=== PATIENT | male | born 1995 | race Caucasian/White ===

== ENCOUNTER 2017-03-29 17:09 | Emergency (ER) | payer BC ==
[2017-03-29 17:12] VITALS: BP 140/94; PULSE 141; RESP 15; TEMP 98.8; O2SAT 99
[2017-03-29 18:34] LABS: BASOPHIL % 0.3 % (0.0-2.0); EOSINOPHIL # 0.5 TH/MM3 (0-0.4); EOSINOPHIL % 6.1 % (0.0-4.0); HEMATOCRIT 46.1 % (39.0-51.0); HEMO FLAGS DIFF FINAL; LYMPH % 31.7 % (9.0-44.0); LYMPHOCYTE # 2.4 TH/MM3 (1.0-4.8); MEAN CELL VOLUME 92.8 FL (80.0-100.0); MEAN CORPUSCULAR HEMOGLOBIN 32.5 PG (27.0-34.0); MEAN CORPUSCULAR HGB CONC 35.1 % (32.0-36.0); MONO % 7.9 % (0.0-8.0); PLATELET COUNT 249 TH/MM3 (150-450); RED BLOOD COUNT 4.97 MIL/MM3 (4.50-5.90); RED CELL DISTRIBUTION WIDTH 13.6 % (11.6-17.2); WHITE BLOOD COUNT 7.5 TH/MM3 (4.0-11.0)
[2017-03-29 18:48] LABS: BLOOD, URINE NEG (NEG); COMMENT (UR) CULT NOT INDICATED; CULTURE IF INDICATED CULT NOT INDICATED; GLUCOSE,URINE NEG (NEG); KETONE, URINE NEG (NEG); MUCUS URINE MANY /lpf (OCC); NITRITE,URINE NEG (NEG); SQUAMOUS EPITHELIAL CELL URINE <1 /hpf (0-5); URINE COLOR YELLOW (YELLW/STRAW)
[2017-03-29 18:59] LABS: BICARBONATE 25.6 MEQ/L (21.0-32.0); POTASSIUM 3.8 MEQ/L (3.5-5.1)
[2017-03-29 21:51] VITALS: BP 147/94; PULSE 108; RESP 18; O2SAT 100
--- NOTE | 2017-03-29 21:55 | PD ---
HPI Chief Complaint: GI Complaint Time Seen by Provider: 21:55 Travel History International Travel<30 days: No Contact w/Intl Traveler<30days: No Traveled to known affect area: No History of Present Illness HPI 21 y/o male presents the emergency department with several day history of gradually worsening right lower quadrant discomfort and crampy pain. Patient has had some "loose stools" over the past 2 days. Patient denies fever, chills, but has had some mild nausea but no vomiting. He did have some esophagitis symptoms this morning upon waking. Patient is concerned he might have appendicitis. He denies urinary symptoms or penile discharge or testicular pain. Patient denies back pain or CVA tenderness. Patient has no family history of bowel disease. He has no previous history of bowel problems in the past. His pain is rated as a 3/10 occasionally up to 5. He states no other significant complaints. No known drug allergies. PFSH Past Medical History Medical History: Denies Significant Hx Tetanus Vaccination: Unknown Influenza Vaccination: No Past Surgical History Surgical History: No Previous Surgery Social History Alcohol Use: Yes (occasional ) Tobacco Use: Yes (occasionally) Substance Use: Yes (marijuana ) Allergies-Medications (Allergen,Severity, Reaction): Coded Allergies: No Known Allergies (Unverified , 07/22/16) Reported Meds & Prescriptions Reported Meds & Active Scripts Active Omeprazole 40 Mg Cap 40 Mg PO DAILY Review of Systems Except as stated in HPI: all other systems reviewed are Neg General / Constitutional: No: Fever, Chills Eyes: No: Visual changes HENT: No: Headaches Cardiovascular: No: Chest Pain or Discomfort Respiratory: No: Shortness of Breath Gastrointestinal: Positive: Nausea, Diarrhea (loose stools.), Abdominal Pain ( right lower quadrant tenderness. See history present illness), Indigestion, No : Vomiting, Constipation, Dysphagia, Loss of Appetite Genitourinary: No: Dysuria Musculoskeletal: No: Pain Skin: No Rash Neurologic: No: Weakness Psychiatric: No: Depression Endocrine: No: Polydipsia Hematologic/Lymphatic: No: Easy Bruising Physical Exam Narrative GENERAL: Patient appears no acute distress. He is ambulatory to the room without difficulty. SKIN: Warm and dry. Normal color. Normal turgor. No rash. HEAD: Atraumatic. Normocephalic. EYES: Pupils equal and round. No scleral icterus. No injection or drainage. ENT: No nasal bleeding or discharge. Mucous membranes pink and moist. Pharynx is clear. Airway is patent. NECK: Trachea midline. Supple and nontender CARDIOVASCULAR: Regular rate and rhythm. RESPIRATORY: No accessory muscle use. Clear to auscultation. Breath sounds equal bilaterally. GASTROINTESTINAL: Abdomen soft, normal bowel sounds, nondistended. Patient has no specific point tenderness, guarding, or rebound. No CVA tenderness is appreciated. Hepatic and splenic margins not palpable. MUSCULOSKELETAL: Extremities without clubbing, cyanosis, or edema. No obvious deformities. NEUROLOGICAL: Awake and alert. No obvious cranial nerve deficits. Motor grossly within normal limits. Five out of 5 muscle strength in the arms and legs. Normal speech. PSYCHIATRIC: Appropriate mood and affect; insight and judgment normal. Data Data Last Documented VS Vital Signs Date Time Temp Pulse Resp B/P Pulse Ox O2 Delivery O2 Flow Rate FiO2 03/29/17 21:51 108 18 147/94 100 Room Air 03/29/17 17:12 98.8 Orders Complete Blood Count With Diff (03/29/17 17:16) Basic Metabolic Panel (Bmp) (03/29/17 17:16) Urinalysis - C+S If Indicated (03/29/17 17:16) Pantoprazole (Protonix) (03/29/17 22:15) Labs Laboratory Tests Test 03/29/17 17:50 White Blood Count 7.5 TH/MM3 Red Blood Count 4.97 MIL/MM3 Hemoglobin 16.2 GM/DL Hematocrit 46.1 % Mean Corpuscular Volume 92.8 FL Mean Corpuscular Hemoglobin 32.5 PG Mean Corpuscular Hemoglobin 35.1 % Concent Red Cell Distribution Width 13.6 % Platelet Count 249 TH/MM3 Mean Platelet Volume 7.0 FL Neutrophils (%) (Auto) 54.0 % Lymphocytes (%) (Auto) 31.7 % Monocytes (%) (Auto) 7.9 % Eosinophils (%) (Auto) 6.1 % Basophils (%) (Auto) 0.3 % Neutrophils # (Auto) 4.0 TH/MM3 Lymphocytes # (Auto) 2.4 TH/MM3 Monocytes # (Auto) 0.6 TH/MM3 Eosinophils # (Auto) 0.5 TH/MM3 Basophils # (Auto) 0.0 TH/MM3 CBC Comment DIFF FINAL Differential Comment Urine Color YELLOW Urine Turbidity CLEAR Urine pH 6.0 Urine Specific [place] 1.035 Urine Protein 30 mg/dL Urine Glucose (UA) NEG mg/dL Urine Ketones NEG mg/dL Urine Occult Blood NEG Urine Nitrite NEG Urine Bilirubin NEG Urine Urobilinogen LESS THAN 2.0 MG/DL Urine Leukocyte Esterase NEG Urine RBC LESS THAN 1 /hpf Urine WBC 3 /hpf Urine Squamous Epithelial <1 /hpf Cells Urine Mucus MANY /lpf Microscopic Urinalysis Comment CULT NOT INDICATED Sodium Level 139 MEQ/L Potassium Level 3.8 MEQ/L Chloride Level 104 MEQ/L Carbon Dioxide Level 25.6 MEQ/L Anion Gap 9 MEQ/L Blood Urea Nitrogen 14 MG/DL Creatinine 1.44 MG/DL Estimat Glomerular Filtration 62 ML/MIN Rate Random Glucose 140 MG/DL Calcium Level 8.7 MG/DL MDM Medical Decision Making Medical Screen Exam Complete: Yes Emergency Medical Condition: Yes Differential Diagnosis Gastritis. Gastroenteritis. Right lower quadrant pain. Possible appendicitis. UTI. STD. Narrative Course Patient is medically stable at time of exam. Labs ordered in triage show normal CBC, normal urinalysis, and normal CMP other than a creatinine of 1.44. Patient does not warrant further medical workup or radiographic imaging based on my history and physical. Patient is felt to have a gastroenteritis. Patient is given pantoprazole 40 mg by mouth. Patient is encouraged to refrain from alcohol and spicy or fatty foods for the next several weeks. Patient is given a prescription for omeprazole 40 mg daily 30. Patient is encouraged to push fluids and stay hydrated. Patient can follow-up with a local primary care physician or return to emergency department if symptoms do not improve or worsen as discussed Diagnosis Primary Impression: Gastritis Qualified Code: K29.70 - Gastritis without bleeding, unspecified chronicity, unspecified gastritis type Patient Instructions: Diet for Stomach Ulcers and Gastritis (ED), General Instructions Additional Instructions: Labs ordered in triage show normal CBC, normal urinalysis, and normal CMP other than a creatinine of 1.44. Patient does not warrant further medical workup or radiographic imaging based on my history and physical. Patient is felt to have a gastroenteritis. Patient is given pantoprazole 40 mg by mouth. Patient is encouraged to refrain from alcohol and spicy or fatty foods for the next several weeks. Patient is given a prescription for omeprazole 40 mg daily 30. Patient is encouraged to push fluids and stay hydrated. Patient can follow-up with a local primary care physician or return to emergency department if symptoms do not improve or worsen as discussed Med/Other Pt SpecificInfo: Prescription(s) given Scripts Omeprazole 40 Mg Cap40 Mg PO DAILY #30 CAP Prov:Magalys Chand MD 03/29/17 Disposition: 01 DISCHARGE HOME Condition: Stable Buzz Curry Mar 29, 2017 21:55
[2017-03-29] MEDS ORDERED: OMEP40CA2 PO (22:05)
[2017-03-29] MEDS ORDERED: PANTOPRAZOLE SOD 40 MG DELAYED RELEASE TAB PO ONE (22:15)
== END 2017-03-29 22:44 | disposition home or self-care (01) ==
LOC: NEPE 17:09
DX: K29.70 Gastritis, unspecified, without bleeding (principal); Z72.0 Tobacco use
CPT/HCPCS: 80048; 81001; 85025; 99283

== ENCOUNTER 2017-05-18 05:42 | Emergency (ER) | payer BC ==
[~2017-05-18] VITALS: Ht 172.7 cm; Wt 76.0 kg
[2017-05-18 05:42] VITALS: BP 155/98; PULSE 115; RESP 16; TEMP 99.3; O2SAT 97
[~2017-05-18 05:42] MED LIST: OMEP40CA2 PO
[2017-05-18] MEDS ORDERED: IOHEXOL 350 MG/ML 10 ML VIAL (for RAD DIAG) IV PUSH ONE (05:43)
--- NOTE | 2017-05-18 06:03 | PD ---
HPI Chief Complaint: GI Complaint Time Seen by Provider: 05:48 Travel History International Travel<30 days: No Contact w/Intl Traveler<30days: No Traveled to known affect area: No History of Present Illness HPI The patient is a 21 year old female who presents to the [facility] emergency department with a history of acid reflux symptoms that awoke him from sound sleep at 4:30 AM. He reports that he had nausea and vomiting immediately after getting up with the symptoms. He reports that he now has midepigastric abdominal pain. He reports that he vomited twice since then and was concerned that there was a small amount of blood in the emesis. He reports that he began to feel lightheaded en route to this facility. He ate last night late and had two beers prior to going to bed. He reports that his meal consisted of a sandwich with Aquilla sauce on it. The patient reports that he has had problems with acid reflux for the last year approximately once every 2 weeks. On review of systems, the patient denies any recent fevers, cough, congestion, neck pain, chest pain, shortness of breath, diarrhea, urinary symptoms, or neurologic symptoms. The patient denies having any blood in his stool or black or tarry stools. He denies having any recent weight loss, night sweats, or fevers. [facility] Past Medical History Narrative Medical The patient reports a history of acid reflux. The patient was seen in the emergency department related to abdominal pain in March. The patient was given a prescription for Protonix, however he reports that he did not fill the prescription. Medical History: Denies Significant Hx Diminished Hearing: No Past Surgical History Surgical History: No Previous Surgery Social History Alcohol Use: Yes (SOCIALLY ) Tobacco Use: No Allergies-Medications (Allergen,Severity, Reaction): Coded Allergies: No Known Allergies (Unverified , 05/18/17) Reported Meds & Prescriptions Reported Meds & Active Scripts Active Nexium (Esomeprazole DR) 20 Mg Capdr 20 Mg PO DAILY Review of Systems Except as stated in HPI: all other systems reviewed are Neg General / Constitutional: No: Fever Eyes: No: Visual changes HENT: No: Headaches Cardiovascular: No: Chest Pain or Discomfort Respiratory: No: Shortness of Breath Gastrointestinal: Positive: Nausea, Vomiting, Abdominal Pain, Hematemesis, Indigestion, No: Diarrhea Genitourinary: No: Dysuria Musculoskeletal: No: Pain Skin: No Rash Neurologic: No: Weakness Psychiatric: No: Depression Endocrine: No: Polydipsia Hematologic/Lymphatic: No: Easy Bruising Physical Exam Narrative General: The patient is a well-developed well-nourished male in no acute distress. Head and Neck exam: Head is normocephalic atraumatic. Eyes: EOMI, pupils are equal round and reactive to light. Nose: Midline septum with pink mucous membranes Mouth: Dentition unremarkable. Moist mucus membranes. Posterior oropharynx is not erythematous. No tonsillar hypertrophy. Uvula midline. Airway patent. Neck: No palpable lymphadenopathy. No nuchal rigidity. No thyromegaly. Cardiovascular: Sinus tachycardia in the 1 teens without murmurs, gallops, or rubs. No pulse deficit to the extremities and simultaneous auscultation and palpation of his radial artery. Lungs: Clear to auscultation bilaterally. No wheezes, rhonchi, or rales. Abdomen: Soft, with tenderness on palpation of the midepigastric area, no other tenderness on palpation of the other quadrants of the abdomen. No guarding, rebound, or rigidity. Normal bowel sounds are audible. No tenderness on palpation of McBurney's point. Negative Metzger sign. Extremities: No clubbing, cyanosis, or edema. 2+ pulses in all 4 extremities. No calf tenderness on palpation. Back: No costovertebral angle tenderness to palpation. Neurologic Exam: Grossly nonfocal. Skin Exam: No rash noted. Intact skin that is warm and dry. Data Data Last Documented VS Vital Signs Date Time Temp Pulse Resp B/P (MAP) Pulse Ox O2 Delivery O2 Flow Rate FiO2 05/18/17 09:28 05/18/17 09:20 108 18 99 05/18/17 07:15 Room Air 05/18/17 05:42 99.3 Orders Orders Complete Blood Count With Diff (05/18/17 05:57) Comprehensive Metabolic Panel (05/18/17 05:57) Prothrombin Time / Inr (Pt) (05/18/17 05:57) Act Partial Throm Time (Ptt) (05/18/17 05:57) Lipase (05/18/17 05:57) Urinalysis - C+S If Indicated (05/18/17 05:57) Magnesium (Mg) (05/18/17 05:57) Chest, Single Ap (05/18/17 05:57) Iv Access Insert/Monitor (05/18/17 05:57) Ecg Monitoring (05/18/17 05:57) Oximetry (05/18/17 05:57) Type And Screen (05/18/17 05:57) Sodium Chlor 0.9% 1000 Ml Inj (Ns 1000 M (05/18/17 06:15) Ondansetron Inj (Zofran Inj) (05/18/17 06:15) Pantoprazole Inj (Protonix Inj) (05/18/17 06:15) Ct Abd/Pel W Iv Contrast(Rout) (05/18/17 07:17) Sodium Chloride 0.9% Flush (Ns Flush) (05/18/17 07:30) Iohexol 350 Inj (Omnipaque 350 Inj) (05/18/17 05:43) Labs Laboratory Tests Test 05/18/17 06:15 05/18/17 07:15 White Blood Count 7.1 TH/MM3 Red Blood Count 4.94 MIL/MM3 Hemoglobin 16.2 GM/DL Hematocrit 46.6 % Mean Corpuscular Volume 94.4 FL Mean Corpuscular Hemoglobin 32.7 PG Mean Corpuscular Hemoglobin Concent 34.7 % Red Cell Distribution Width 14.4 % Platelet Count 259 TH/MM3 Mean Platelet Volume 6.5 FL Neutrophils (%) (Auto) 56.4 % Lymphocytes (%) (Auto) 24.3 % Monocytes (%) (Auto) 13.0 % Eosinophils (%) (Auto) 5.9 % Basophils (%) (Auto) 0.4 % Neutrophils # (Auto) 4.0 TH/MM3 Lymphocytes # (Auto) 1.7 TH/MM3 Monocytes # (Auto) 0.9 TH/MM3 Eosinophils # (Auto) 0.4 TH/MM3 Basophils # (Auto) 0.0 TH/MM3 CBC Comment DIFF FINAL Differential Comment Prothrombin Time 10.7 SEC Prothromb Time International Ratio 1.0 RATIO Activated Partial Thromboplast Time 24.5 SEC Blood Urea Nitrogen 15 MG/DL Creatinine 1.03 MG/DL Random Glucose 104 MG/DL Total Protein 7.7 GM/DL Albumin 4.0 GM/DL Calcium Level 8.8 MG/DL Magnesium Level 2.3 MG/DL Alkaline Phosphatase 88 U/L Aspartate Amino Transf (AST/SGOT) 63 U/L Alanine Aminotransferase (ALT/SGPT) 101 U/L Total Bilirubin 0.5 MG/DL Sodium Level 140 MEQ/L Potassium Level 3.9 MEQ/L Chloride Level 103 MEQ/L Carbon Dioxide Level 28.0 MEQ/L Anion Gap 9 MEQ/L Estimat Glomerular Filtration Rate 91 ML/MIN Lipase 132 U/L Urine Color YELLOW Urine Turbidity CLEAR Urine pH 8.5 Urine Specific [place] 1.018 Urine Protein TRACE mg/dL Urine Glucose (UA) NEG mg/dL Urine Ketones NEG mg/dL Urine Occult Blood NEG Urine Nitrite NEG Urine Bilirubin NEG Urine Urobilinogen LESS THAN 2.0 MG/DL Urine Leukocyte Esterase NEG Urine RBC 3 /hpf Urine WBC 1 /hpf Urine Bacteria RARE /hpf Urine Mucus FEW /lpf Microscopic Urinalysis Comment CULT NOT INDICATED MDM Medical Decision Making Medical Screen Exam Complete: Yes Emergency Medical Condition: Yes Medical Record Reviewed: Yes Differential Diagnosis Peptic ulcer disease, versus acid reflux, versus hemorrhagic esophagitis, versus Susan-Mckinney tear Narrative Course During the course of the patients emergency department visit, the patients history, examination, and differential diagnosis were reviewed with the patient. The patient had IV access obtained and blood work sent for analysis. The patient was placed on a media monitor with oximetry and blood pressure monitoring. The patient was initially provided normal saline 1 L IV fluid bolus, Zofran 4 mg IV, Protonix 40 mg IV. The patients laboratory studies were reviewed and remarkable for white count of 7.1, hemoglobin 16.2, platelets 259 with 13 monocytes, CMP is remarkable for an AST of 63, ALT 101, PT 10.7, PTT 24.5, urinalysis shows rare bacteria otherwise unremarkable. Radiology studies were reviewed and remarkable for a chest x-ray that shows no acute cardiopulmonary disease. The patient's CT scan of the abdomen and pelvis is pending at the conclusion of my shift. The patient is resting comfortably. The patient's case was checked out to the oncoming emergency physician to disposition the patient based on the conclusion of the patient's workup. Diagnosis Primary Impression: Abdominal pain Qualified Codes: R10.13 - Epigastric pain Additional Impression: Vomiting Qualified Codes: R11.2 - Nausea with vomiting, unspecified Scripts Esomeprazole DR (Nexium) 20 Mg Capdr 20 MG PO DAILY, #30 CAP 0 Refills Prov: Surendra Bernabe MD 05/18/17 Magalys Chand MD May 18, 2017 06:03
[2017-05-18] MEDS ORDERED: ONDANSETRON HCL 4 MG/2 ML VIAL IV ONE (06:15)
[2017-05-18] MEDS ORDERED: PANTOPRAZOLE SODIUM 40 MG VIAL IV PUSH ONE (06:15)
[2017-05-18] MEDS ORDERED: SODIUM CHLOR 0.9% 1000 ML INJ 1,000 ML IV ONE (06:15)
--- NOTE | 2017-05-18 06:26 | RADRPT ---
EXAM DATE/TIME: 05/18/2017 06:18 [facility] COMPARISON: No previous studies available for comparison. INDICATIONS : Vomited blood this morning. MEDICAL HISTORY : None. SURGICAL HISTORY : None. ENCOUNTER: Initial ACUITY: 1 day PAIN SCORE: 0/10 LOCATION: Bilateral chest FINDINGS: Portable AP view of the chest demonstrates a normal-sized cardiac silhouette. No effusion, consolidat ion, or pneumothorax is visualized. The bones and soft tissues demonstrate no acute abnormality. CONCLUSION: No acute cardiopulmonary abnormality is identified. Martin Miranda MD on May 18, 2017 at 6:23 Board Certified Radiologist. This report was verified electronically.
[2017-05-18 06:46] LABS: APTT (PATIENT) 24.5 SEC (24.3-30.1); PROTHROMBIN TIME - PATIENT 10.7 SEC (9.8-11.6)
[2017-05-18 06:54] LABS: BASOPHIL % 0.4 % (0.0-2.0); EOSINOPHIL # 0.4 TH/MM3 (0-0.4); EOSINOPHIL % 5.9 % (0.0-4.0); HEMATOCRIT 46.6 % (39.0-51.0); HEMO FLAGS DIFF FINAL; LYMPH % 24.3 % (9.0-44.0); LYMPHOCYTE # 1.7 TH/MM3 (1.0-4.8); MEAN CELL VOLUME 94.4 FL (80.0-100.0); MEAN CORPUSCULAR HEMOGLOBIN 32.7 PG (27.0-34.0); MEAN CORPUSCULAR HGB CONC 34.7 % (32.0-36.0); NEUT % 56.4 % (16.0-70.0); PLATELET COUNT 259 TH/MM3 (150-450); RED BLOOD COUNT 4.94 MIL/MM3 (4.50-5.90); RED CELL DISTRIBUTION WIDTH 14.4 % (11.6-17.2); WHITE BLOOD COUNT 7.1 TH/MM3 (4.0-11.0)
[2017-05-18 07:07] LABS: ALKALINE PHOSPHATASE 88 U/L (45-117); ALT (GPT) 101 U/L (12-78); TOTAL BILIRUBIN ADULT 0.5 MG/DL (0.2-1.0)
[2017-05-18 07:12] LABS: ANION GAP 9 MEQ/L (5-15); AST (GOT) 63 U/L (15-37); BLOOD UREA NITROGEN 15 MG/DL (7-18); CHLORIDE 103 MEQ/L (98-107); GLOMERULAR FILTRATION RATE 91 ML/MIN (>89); MAGNESIUM 2.3 MG/DL (1.5-2.5); POTASSIUM 3.9 MEQ/L (3.5-5.1); SODIUM (NA) 140 MEQ/L (136-145)
[2017-05-18 07:15] VITALS: BP 160/79; PULSE 103; RESP 18; O2SAT 97
[2017-05-18] MEDS ORDERED: SODIUM CHLORIDE 0.9% FLUSH 10 ML FLUSH IV FLUSH PRN (07:30)
[2017-05-18 07:43] LABS: BACTERIA, URINE RARE /hpf; BLOOD, URINE NEG (NEG); COMMENT (UR) CULT NOT INDICATED; CULTURE IF INDICATED CULT NOT INDICATED; GLUCOSE,URINE NEG (NEG); KETONE, URINE NEG (NEG); MUCUS URINE FEW /lpf (OCC); NITRITE,URINE NEG (NEG); PH, URINE 8.5 (5.0-8.5); URINE COLOR YELLOW (YELLW/STRAW)
--- NOTE | 2017-05-18 08:00 | PD ---
Physical Exam Date Seen by Provider: May 18, 2017 Time Seen by Provider: 07:45 Narrative She was signed out to me by Dr. Chand at 745 near change of shift. The patient was awaiting a CT scan. The patient presents with complaints of epigastric pain that woke him from sleep. He was seen in March for similar thing. The patient reported possibly seen blood in his emesis. He did report that he had a sandwich with buffalo wings sauce and 2 beers prior to going to bed. White count was within normal limits. His LFTs were slightly elevated. He has not followed up with GI service as yet. Data Data Last Documented VS Vital Signs Date Time Temp Pulse Resp B/P (MAP) Pulse Ox O2 Delivery O2 Flow Rate FiO2 05/18/17 07:15 103 18 160/79 (106) 97 Room Air 05/18/17 05:42 99.3 Orders Orders Complete Blood Count With Diff (05/18/17 05:57) Comprehensive Metabolic Panel (05/18/17 05:57) Prothrombin Time / Inr (Pt) (05/18/17 05:57) Act Partial Throm Time (Ptt) (05/18/17 05:57) Lipase (05/18/17 05:57) Urinalysis - C+S If Indicated (05/18/17 05:57) Magnesium (Mg) (05/18/17 05:57) Chest, Single Ap (05/18/17 05:57) Iv Access Insert/Monitor (05/18/17 05:57) Ecg Monitoring (05/18/17 05:57) Oximetry (05/18/17 05:57) Type And Screen (05/18/17 05:57) Sodium Chlor 0.9% 1000 Ml Inj (Ns 1000 M (05/18/17 06:15) Ondansetron Inj (Zofran Inj) (05/18/17 06:15) Pantoprazole Inj (Protonix Inj) (05/18/17 06:15) Ct Abd/Pel W Iv Contrast(Rout) (05/18/17 07:17) Sodium Chloride 0.9% Flush (Ns Flush) (05/18/17 07:30) Iohexol 350 Inj (Omnipaque 350 Inj) (05/18/17 05:43) Labs Laboratory Tests Test 05/18/17 06:15 05/18/17 07:15 White Blood Count 7.1 TH/MM3 Red Blood Count 4.94 MIL/MM3 Hemoglobin 16.2 GM/DL Hematocrit 46.6 % Mean Corpuscular Volume 94.4 FL Mean Corpuscular Hemoglobin 32.7 PG Mean Corpuscular Hemoglobin Concent 34.7 % Red Cell Distribution Width 14.4 % Platelet Count 259 TH/MM3 Mean Platelet Volume 6.5 FL Neutrophils (%) (Auto) 56.4 % Lymphocytes (%) (Auto) 24.3 % Monocytes (%) (Auto) 13.0 % Eosinophils (%) (Auto) 5.9 % Basophils (%) (Auto) 0.4 % Neutrophils # (Auto) 4.0 TH/MM3 Lymphocytes # (Auto) 1.7 TH/MM3 Monocytes # (Auto) 0.9 TH/MM3 Eosinophils # (Auto) 0.4 TH/MM3 Basophils # (Auto) 0.0 TH/MM3 CBC Comment DIFF FINAL Differential Comment Prothrombin Time 10.7 SEC Prothromb Time International Ratio 1.0 RATIO Activated Partial Thromboplast Time 24.5 SEC Blood Urea Nitrogen 15 MG/DL Creatinine 1.03 MG/DL Random Glucose 104 MG/DL Total Protein 7.7 GM/DL Albumin 4.0 GM/DL Calcium Level 8.8 MG/DL Magnesium Level 2.3 MG/DL Alkaline Phosphatase 88 U/L Aspartate Amino Transf (AST/SGOT) 63 U/L Alanine Aminotransferase (ALT/SGPT) 101 U/L Total Bilirubin 0.5 MG/DL Sodium Level 140 MEQ/L Potassium Level 3.9 MEQ/L Chloride Level 103 MEQ/L Carbon Dioxide Level 28.0 MEQ/L Anion Gap 9 MEQ/L Estimat Glomerular Filtration Rate 91 ML/MIN Lipase 132 U/L Urine Color YELLOW Urine Turbidity CLEAR Urine pH 8.5 Urine Specific [place] 1.018 Urine Protein TRACE mg/dL Urine Glucose (UA) NEG mg/dL Urine Ketones NEG mg/dL Urine Occult Blood NEG Urine Nitrite NEG Urine Bilirubin NEG Urine Urobilinogen LESS THAN 2.0 MG/DL Urine Leukocyte Esterase NEG Urine RBC 3 /hpf Urine WBC 1 /hpf Urine Bacteria RARE /hpf Urine Mucus FEW /lpf Microscopic Urinalysis Comment CULT NOT INDICATED MDM Medical Record Reviewed: Yes Supervised Visit with NICOLÁS: No Interpretation(s) Last 24 hours Impressions Abdomen/Pelvis CT 05/18/17 0717 Signed Impressions: Service Date/Time: Thursday, May 18, 2017 07:43 - CONCLUSION: 1. Moderate hepatic steatosis. 2. Subcentimeter left renal low-density likely benign. 3. No acute inflammatory process. 4. Normal appendix. Josh Theodore MD Chest X-Ray 05/18/17 0557 Signed Impressions: Service Date/Time: Thursday, May 18, 2017 06:18 - CONCLUSION: No acute cardiopulmonary abnormality is identified. Martin Miranda MD Narrative Course 21-year-old male who was signed out to me at change of shift. We are waiting CT scan. CT scan shows no evidence of acute process. He does have steatosis of the liver as well as a subcentimeter nodule in the kidney which is likely benign. He is instructed to have a bland diet and follow up with GI physician. He'll be given the name and number of the GI physician who is on-call today. He is instructed to take Nexium daily. He also instructed return of he develops any worsening symptoms, or any other reason the concerns him. Diagnosis Primary Impression: Epigastric pain Additional Impressions: Nausea & vomiting Elevated liver enzymes Steatosis of liver left renal nodule Referrals: Radha Mirza MD Additional Instruction: [place] diet. Avoid spicy fatty foods. Follow up with GI physician for the "fatty liver". Also follow up with primary care physician for the renal nodule that is likely benign. Med/Other Pt SpecificInfo: Prescription(s) given Scripts No Active Prescriptions or Reported Meds Disposition: 01 DISCHARGE HOME Condition: Stable Surendra Bernabe MD May 18, 2017 08:00
--- NOTE | 2017-05-18 08:11 | RADRPT ---
EXAM DATE/TIME: 05/18/2017 07:43 [facility] COMPARISON: No previous studies available for comparison. INDICATIONS : Abdomen pain; vomiting. IV CONTRAST: 100 cc Omnipaque 350 (iohexol) IV ORAL CONTRAST: No oral contrast ingested. RADIATION DOSE: 9.96 CTDIvol (mGy) MEDICAL HISTORY : None SURGICAL HISTORY : None. ENCOUNTER: Initial ACUITY: 1 day PAIN SCALE: 5/10 LOCATION: Bilateral abdomen. TECHNIQUE: Volumetric scanning of the abdomen and pelvis was performed. Using automated exposure control and ad justment of the mA and/or kV according to patient size, radiation dose was kept as low as reasonably achievable to obtain optimal diagnostic quality images. DICOM format image data is available electro nically for review and comparison. FINDINGS: LOWER LUNGS: The visualized lower lungs are clear. LIVER: Decrease attenuation without lesion. There is no dilation of the biliary tree. No calcified gallsto haris. SPLEEN: Normal size without lesion. PANCREAS: Within normal limits. KIDNEYS: Normal in size and shape. There is no mass, stone or hydronephrosis. Small low density upper pole le ft kidney. ADRENAL GLANDS: Within normal limits. VASCULAR: There is no aortic aneurysm. BOWEL/MESENTERY: The stomach, small bowel, and colon demonstrate no acute abnormality. There is no free intraperitone al air or fluid. ABDOMINAL WALL: Within normal limits. RETROPERITONEUM: There is no lymphadenopathy. BLADDER: No wall thickening or mass. REPRODUCTIVE: Within normal limits. INGUINAL: There is no lymphadenopathy or hernia. MUSCULOSKELETAL: Within normal limits for patient age. CONCLUSION: 1. Moderate hepatic steatosis. 2. Subcentimeter left renal low-density likely benign. 3. No acute inflammatory process. 4. Normal appendix. Josh Theodore MD on May 18, 2017 at 8:02 Board Certified Radiologist. This report was verified electronically.
[2017-05-18] MEDS ORDERED: NEXI20CA PO (09:10)
[2017-05-18 09:20] VITALS: BP 146/89
== END 2017-05-18 09:28 | disposition home or self-care (01) ==
LOC: NEPE 05:42
DX: R10.13 Epigastric pain (principal); K92.0 Hematemesis; R74.8 Abnormal levels of other serum enzymes; K76.0 Fatty (change of) liver, not elsewhere classified; K21.9 Gastro-esophageal reflux disease without esophagitis; Z79.899 Other long term (current) drug therapy
CPT/HCPCS: 71010; 74177; 80053; 81001; 83690; 83735; 85025; 85610; 85730; 86850; 86900; 86901; 96361; 96374; 96375; 99285; C9113; J2405; J7030; Q9967

== ENCOUNTER 2017-08-18 13:30 | Emergency (ER) | payer BC ==
[~2017-08-18 13:30] MED LIST changes: +NEXI20CA PO; -OMEP40CA2 PO
[2017-08-18 13:32] VITALS: BP 145/105; PULSE 110; RESP 17; TEMP 99
[2017-08-18] MEDS ORDERED: SODIUM CHLOR 0.9% 1000 ML INJ 1,000 ML IV ONE (13:51)
[2017-08-18] MEDS ORDERED: SODIUM CHLORIDE 0.9% FLUSH 10 ML FLUSH IVF PRN (14:00)
[2017-08-18] MEDS ORDERED: ONDANSETRON HCL 4 MG/2 ML VIAL IV PUSH ONE (14:00)
[2017-08-18 14:09] LABS: HEMATOCRIT 45.7 % (39.0-51.0); MEAN CELL VOLUME 96.4 FL (80.0-100.0); MEAN CORPUSCULAR HEMOGLOBIN 35.3 PG (27.0-34.0); PLATELET COUNT 181 TH/MM3 (150-450); RED BLOOD COUNT 4.75 MIL/MM3 (4.50-5.90); RED CELL DISTRIBUTION WIDTH 13.7 % (11.6-17.2); WHITE BLOOD COUNT 8.3 TH/MM3 (4.0-11.0)
[2017-08-18 14:11] LABS: HEMO FLAGS AUTO DIFF; MEAN CORPUSCULAR HGB CONC 36.6 % (32.0-36.0)
[2017-08-18 14:27] LABS: ANION GAP 8 MEQ/L (5-15); AST (GOT) 99 U/L (15-37); BICARBONATE 26.3 MEQ/L (21.0-32.0); BLOOD UREA NITROGEN 10 MG/DL (7-18); CHLORIDE 100 MEQ/L (98-107); GLOMERULAR FILTRATION RATE 97 ML/MIN (>89); POTASSIUM 3.6 MEQ/L (3.5-5.1); SODIUM (NA) 134 MEQ/L (136-145)
--- NOTE | 2017-08-18 14:27 | PD ---
HPI Chief Complaint: Flank/Kidney Pain Time Seen by Provider: 13:39 Travel History International Travel<30 days: No Contact w/Intl Traveler<30days: No Traveled to known affect area: No History of Present Illness HPI Patient is a 21-year-old male presenting to the emergency department evaluation of nausea, vomiting, flank pain. Patient states it started 2-3 days ago. He reports a decreased appetite, he states whenever he thinks about eating he gets nauseated. Patient states that he feels as if he is dehydrated, his urine has been darker than normal. He states his urine is honey colored. He reports that his hands are swollen for the last week. There are no sore and irritated feeling. Patient denies any abdominal pain, chest pain, headache, fevers. He does state that he was hot last night and had to sleep in the living room. [facility] Past Medical History Narrative Medical Seasonal allergies Diminished Hearing: No Gastrointestinal Disorders: Yes (TONY) Immunizations Current: No Tetanus Vaccination: Never Vaccinated Influenza Vaccination: No Past Surgical History Surgical History: No Previous Surgery Social History Alcohol Use: No Tobacco Use: No Substance Use: No Allergies-Medications (Allergen,Severity, Reaction): Coded Allergies: No Known Allergies (Unverified Adverse Reaction, Unknown, 08/18/17) Reported Meds & Prescriptions Reported Meds & Active Scripts Active Omeprazole 40 Mg Cap 40 Mg PO DAILY Zofran Odt (Ondansetron Odt) 4 Mg Tab 4 Mg SL Q6HR PRN Triamcinolone Topical (Triamcinolone Acetonide) 0.025% Cream 1 Applic TOPICAL BID Review of Systems Except as stated in HPI: all other systems reviewed are Neg General / Constitutional: No: Fever HENT: No: Headaches Cardiovascular: No: Chest Pain or Discomfort Respiratory: No: Shortness of Breath Gastrointestinal: Positive: Nausea, Vomiting, Loss of Appetite Genitourinary: Positive: Flank Pain, No: Urgency, Frequency, Dysuria Neurologic: Positive: Weakness Physical Exam Narrative GENERAL: Well-developed, well-nourished, alert male. Resting comfortably in no acute distress. SKIN: Warm and dry. Bilateral hands with dry, hyperpigmented skin. HEAD: Atraumatic. Normocephalic. EYES: Pupils equal and round. No scleral icterus. No injection or drainage. ENT: No nasal bleeding or discharge. Mucous membranes pink and moist. NECK: Trachea midline. No JVD. CARDIOVASCULAR: Tachycardic. RESPIRATORY: No accessory muscle use. Clear to auscultation. Breath sounds equal bilaterally. GASTROINTESTINAL: Abdomen soft, non-tender, nondistended. Hepatic and splenic margins not palpable. Positive bowel sounds, no rebound, no guarding. MUSCULOSKELETAL: Extremities without clubbing, cyanosis, or edema. No obvious deformities. Negative CVAT bilaterally. NEUROLOGICAL: Awake and alert. No obvious cranial nerve deficits. Motor grossly within normal limits. Five out of 5 muscle strength in the arms and legs. Normal speech. PSYCHIATRIC: Appropriate mood and affect; insight and judgment normal. Data Data Last Documented VS Vital Signs Date Time Temp Pulse Resp B/P (MAP) Pulse Ox O2 Delivery O2 Flow Rate FiO2 08/18/17 13:32 99.0 110 17 145/105 (118) Room Air Orders Orders Complete Blood Count With Diff (08/18/17 13:51) Comprehensive Metabolic Panel (08/18/17 13:51) Urinalysis - C+S If Indicated (08/18/17 13:51) Lipase (08/18/17 13:51) Iv Access Insert/Monitor (08/18/17 13:51) Ecg Monitoring (08/18/17 13:51) Oximetry (08/18/17 13:51) Ondansetron Inj (Zofran Inj) (08/18/17 14:00) Sodium Chlor 0.9% 1000 Ml Inj (Ns 1000 M (08/18/17 13:51) Sodium Chloride 0.9% Flush (Ns Flush) (08/18/17 14:00) Drug Screen, Random Urine (08/18/17 15:16) Us Kidney/Renal/Bladder (08/18/17 ) Ed Discharge Order (08/18/17 16:45) Labs Laboratory Tests Test 08/18/17 14:00 08/18/17 14:55 White Blood Count 8.3 TH/MM3 Red Blood Count 4.75 MIL/MM3 Hemoglobin 16.7 GM/DL Hematocrit 45.7 % Mean Corpuscular Volume 96.4 FL Mean Corpuscular Hemoglobin 35.3 PG Mean Corpuscular Hemoglobin Concent 36.6 % Red Cell Distribution Width 13.7 % Platelet Count 181 TH/MM3 Mean Platelet Volume 6.7 FL CBC Comment AUTO DIFF Differential Total Cells Counted 100 Neutrophils % (Manual) 74 % Band Neutrophils % 1 % Lymphocytes % 12 % Monocytes % 10 % Eosinophils % 3 % Neutrophils # (Manual) 6.2 TH/MM3 Differential Comment FINAL DIFF MANUAL Toxic Vacuolation PRESENT Platelet Estimate NORMAL Platelet Morphology Comment NORMAL Blood Urea Nitrogen 10 MG/DL Creatinine 0.98 MG/DL Random Glucose 104 MG/DL Total Protein 7.8 GM/DL Albumin 4.4 GM/DL Calcium Level 9.2 MG/DL Alkaline Phosphatase 94 U/L Aspartate Amino Transf (AST/SGOT) 99 U/L Alanine Aminotransferase (ALT/SGPT) 144 U/L Total Bilirubin 1.9 MG/DL Sodium Level 134 MEQ/L Potassium Level 3.6 MEQ/L Chloride Level 100 MEQ/L Carbon Dioxide Level 26.3 MEQ/L Anion Gap 8 MEQ/L Estimat Glomerular Filtration Rate 97 ML/MIN Lipase 93 U/L Urine Color YELLOW Urine Turbidity CLEAR Urine pH 8.5 Urine Specific [place] 1.029 Urine Protein GREATER THAN 600 mg/dL Urine Glucose (UA) NEG mg/dL Urine Ketones 10 mg/dL Urine Occult Blood NEG Urine Nitrite NEG Urine Bilirubin NEG Urine Urobilinogen 8.0 MG/DL Urine Leukocyte Esterase NEG Urine RBC 1 /hpf Urine WBC LESS THAN 1 /hpf Urine Mucus FEW /lpf Microscopic Urinalysis Comment CULT NOT INDICATED Urine Opiates Screen NEG Urine Barbiturates Screen NEG Urine Amphetamines Screen NEG Urine Benzodiazepines Screen NEG Urine Cocaine Screen NEG Urine Cannabinoids Screen POS MDM Medical Decision Making Medical Screen Exam Complete: Yes Emergency Medical Condition: Yes Medical Record Reviewed: Yes Interpretation(s) Vital Signs Date Time Temp Pulse Resp B/P (MAP) Pulse Ox O2 Delivery O2 Flow Rate FiO2 08/18/17 13:32 99.0 110 17 145/105 (118) Room Air Laboratory Tests Test 08/18/17 14:00 08/18/17 14:55 White Blood Count 8.3 TH/MM3 Red Blood Count 4.75 MIL/MM3 Hemoglobin 16.7 GM/DL Hematocrit 45.7 % Mean Corpuscular Volume 96.4 FL Mean Corpuscular Hemoglobin 35.3 PG Mean Corpuscular Hemoglobin Concent 36.6 % Red Cell Distribution Width 13.7 % Platelet Count 181 TH/MM3 Mean Platelet Volume 6.7 FL CBC Comment AUTO DIFF Differential Total Cells Counted 100 Neutrophils % (Manual) 74 % Band Neutrophils % 1 % Lymphocytes % 12 % Monocytes % 10 % Eosinophils % 3 % Neutrophils # (Manual) 6.2 TH/MM3 Differential Comment FINAL DIFF MANUAL Toxic Vacuolation PRESENT Platelet Estimate NORMAL Platelet Morphology Comment NORMAL Blood Urea Nitrogen 10 MG/DL Creatinine 0.98 MG/DL Random Glucose 104 MG/DL Total Protein 7.8 GM/DL Albumin 4.4 GM/DL Calcium Level 9.2 MG/DL Alkaline Phosphatase 94 U/L Aspartate Amino Transf (AST/SGOT) 99 U/L Alanine Aminotransferase (ALT/SGPT) 144 U/L Total Bilirubin 1.9 MG/DL Sodium Level 134 MEQ/L Potassium Level 3.6 MEQ/L Chloride Level 100 MEQ/L Carbon Dioxide Level 26.3 MEQ/L Anion Gap 8 MEQ/L Estimat Glomerular Filtration Rate 97 ML/MIN Lipase 93 U/L Urine Color YELLOW Urine Turbidity CLEAR Urine pH 8.5 Urine Specific [place] 1.029 Urine Protein GREATER THAN 600 mg/dL Urine Glucose (UA) NEG mg/dL Urine Ketones 10 mg/dL Urine Occult Blood NEG Urine Nitrite NEG Urine Bilirubin NEG Urine Urobilinogen 8.0 MG/DL Urine Leukocyte Esterase NEG Urine RBC 1 /hpf Urine WBC LESS THAN 1 /hpf Urine Mucus FEW /lpf Microscopic Urinalysis Comment CULT NOT INDICATED Urine Opiates Screen NEG Urine Barbiturates Screen NEG Urine Amphetamines Screen NEG Urine Benzodiazepines Screen NEG Urine Cocaine Screen NEG Urine Cannabinoids Screen POS Vital Signs Date Time Temp Pulse Resp B/P (MAP) Pulse Ox O2 Delivery O2 Flow Rate FiO2 08/18/17 13:32 99.0 110 17 145/105 (118) Room Air Differential Diagnosis Gastritis versus gastroenteritis versus pancreatitis versus cholecystitis versus obstruction versus metabolic abnormality versus eczema versus other Narrative Course Patient is a 21-year-old male that presented to the emergency evaluation of nausea, vomiting, weakness as well as skin changes to his hands bilaterally. Patient appears well, his vital signs are stable, he is smiling tachycardic on arrival however patient appears anxious. Labs ordered and pending. IV fluids and Zofran ordered. CBC with no acute abnormalities. Chemistry with mild transaminitis, this is 70 increased when compared to prior. Patient has known history of TONY. Urine drug screen is positive for marijuana. Urinalysis with proteinuria, inconsistent with infection. An ultrasound of the kidneys was performed to assess for possible stone and to reduce exposure to radiation as patient has CT scan the abdomen and pelvis over the summer. Ultrasound which is read by the radiologist was unremarkable. Patient will be discharged home with omeprazole, Zofran. As well as a prescription for triamcinolone cream for the eczema on his hands. He was encouraged to establish care with a primary doctor or [facility]. He was encouraged to maintain a bland, low residue diet, increasing as tolerated. He was advised to return to emergency department for any new or worsening symptoms. Patient was reassured at this time that there were no acute findings. Patient is stable for discharge. Diagnosis Primary Impression: Gastritis Qualified Codes: K29.70 - Gastritis, unspecified, without bleeding Additional Impressions: Nausea & vomiting Qualified Codes: R11.2 - Nausea with vomiting, unspecified Eczema Qualified Codes: L30.9 - Dermatitis, unspecified Referrals: [facility] 1 week Patient Instructions: Acute Nausea and Vomiting (ED), Eczema (ED), General Instructions Additional Instructions: Maintain a bland, easy to digest diet, increasing as tolerated Maintain Adequate fluid intake Take medications as directed Follow-up at the [facility] Return to emergency department for any new or worsening symptoms Med/Other Pt SpecificInfo: Prescription(s) given Scripts Omeprazole (Omeprazole) 40 Mg Cap 40 MG PO DAILY, #30 CAP 0 Refills Prov: Olivia Rice 08/18/17 Ondansetron Odt (Zofran Odt) 4 Mg Tab 4 MG SL Q6HR Y for Nausea/Vomiting, #15 TAB 0 Refills Prov: Olivia Rice 08/18/17 Triamcinolone Topical (Triamcinolone Topical) 0.025% Cream 1 APPLIC TOPICAL BID for Inflammation, #60 GM 0 Refills Prov: Olivia Rice 08/18/17 Disposition: 01 DISCHARGE HOME Condition: Stable Olivia Rice Aug 18, 2017 14:27
[2017-08-18 14:30] LABS: ALKALINE PHOSPHATASE 94 U/L (45-117); ALT (GPT) 144 U/L (12-78); TOTAL BILIRUBIN ADULT 1.9 MG/DL (0.2-1.0)
[2017-08-18 14:33] LABS: BANDS 1 % (0-6); EOSINOPHILS 3 % (0-4); NEUTROPHIL # MANUAL DIFF 6.2 TH/MM3 (1.8-7.7); PLATELET ESTIMATE SMEAR NORMAL (NORMAL); PLATELET MORPHOLOGY NORMAL (NORMAL); POLYS (SEG NEUTROPHILS) 74 % (16-70); WBC DIFF SAMPLE 100
[2017-08-18 14:34] LABS: SCAN/DIFF FINAL DIFF MANUAL; TOXIC VACUOLATION PRESENT (NONE SEEN)
[2017-08-18 15:38] LABS: BLOOD, URINE NEG (NEG); COMMENT (UR) CULT NOT INDICATED; CULTURE IF INDICATED CULT NOT INDICATED; GLUCOSE,URINE NEG (NEG); KETONE, URINE 10 mg/dL (NEG); MUCUS URINE FEW /lpf (OCC); NITRITE,URINE NEG (NEG); PH, URINE 8.5 (5.0-8.5); URINE COLOR YELLOW (YELLW/STRAW)
--- NOTE | 2017-08-18 16:35 | RADRPT ---
EXAM DATE/TIME: 08/18/2017 16:11 [place] COMPARISON: CT ABDOMEN & PELVIS W CONTRAST, May 18, 2017, 7:43. INDICATIONS : Flank pain. MEDICAL HISTORY : Flank pain. Velarde's disorder. SURGICAL HISTORY : None. ENCOUNTER: Initial ACUITY: 2 days PAIN SCORE: 6/10 LOCATION: Bilateral flank MEASUREMENTS: RIGHT KIDNEY: 10.2 x 5.8 x 4.8 cm LEFT KIDNEY: 11.7 x 5.1 x 4.9 cm FINDINGS: Diffuse mild increase in hepatic attenuation suggesting steatosis. Mild splenomegaly. RIGHT KIDNEY: Renal cortex is normal in thickness and echotexture. No hydronephrosis, stone, or mass. LEFT KIDNEY: Renal cortex is normal in thickness and echotexture. No hydronephrosis, stone, or mass. BLADDER: Within normal limits given the degree of distension. CONCLUSION: Unremarkable sonographic appearance of the kidneys Martin Pelayo MD on August 18, 2017 at 16:31 Board Certified Radiologist. This report was verified electronically.
[2017-08-18] MEDS ORDERED: ZOFR4TAB3 SL (16:45)
[2017-08-18] MEDS ORDERED: OMEP40CA2 PO (16:45)
[2017-08-18] MEDS ORDERED: TRIA.025%T TOPICAL (16:45)
== END 2017-08-18 17:12 | disposition home or self-care (01) ==
LOC: NEPE 13:30
DX: K29.70 Gastritis, unspecified, without bleeding (principal); L30.9 Dermatitis, unspecified; Z79.899 Other long term (current) drug therapy
CPT/HCPCS: 76775; 80053; 80307; 81001; 83690; 85007; 85027; 96361; 96374; 99285; J2405; J7030